=== PATIENT | male | born 1960 | race Caucasian/White ===

== ENCOUNTER 2022-08-07 09:24 | Day surgery (SDC) | payer SELFPAY ==
[~2022-08-07] VITALS: Ht 172.7 cm; Wt 68.9 kg
[~2022-08-07 09:24] MED LIST: CIPRO500 MG PO; MOTRIN600 MG/TAB PO; MULTI VIT OR; PERCOCET 5/325M1 TAB PO; ULTRAM50 MG PO
[2022-08-07] MEDS ORDERED: PERCOCET 5/321 COMBO PO (10:52)
[2022-08-07 11:55] VITALS: BP 152/96
== END 2022-08-07 12:20 | disposition home or self-care (01) | DRG 352 ==
LOC: ORM 09:24
PROVIDERS: ATTEND Surgery
PROC: 0YUA4JZ Supplement Bilateral Inguinal Region with Synthetic Substitute, Percutaneous Endoscopic Approach (ICD-10-PCS; principal; 2022-08-07)
DX: K40.20 Bilateral inguinal hernia, without obstruction or gangrene, not specified as recurrent (principal)
CPT/HCPCS: C1781; J0131